=== PATIENT | female | born 1950 | race Asian ===

== ENCOUNTER 2019-08-15 21:20 | Emergency (ER) | payer OTHER ==
[~2019-08-15] VITALS: Ht 162.6 cm; Wt 57.6 kg
[2019-08-15 21:40] VITALS: Ht 162.6 cm; Wt 57.6 kg
[2019-08-16 01:01] VITALS: BP 140/77
== END 2019-08-16 01:01 | disposition home or self-care (01) ==
LOC: ED 21:20
DX: B02.30 Zoster ocular disease, unspecified (principal); E78.00 Pure hypercholesterolemia, unspecified